=== PATIENT | female | born 1945 | race Caucasian/White ===

== ENCOUNTER 2018-09-11 17:54 | Emergency (ER) | payer OTHER ==
[~2018-09-11] VITALS: Ht 167.6 cm; Wt 95.3 kg
[2018-09-11 18:17] VITALS: BP 155/100
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
[2018-09-11 20:09] LABS: CREATININE ISTAT 1.2 mg/dL (0.5-1.4); HEMOGLOBIN ISTAT 13.9 g/dL (12-15); ION CA ISTAT 1.2 mmol/L (1.13-1.32); POTASSIUM ISTAT 4.1 mmol/L (3.5-5.0)
--- NOTE | 2018-09-11 20:41 | EKG ---
[facility] [address] [place] [address] Test Date: 2018-09-11 Test Time: 19:36:09 Pat Name: YARITZA MONAE Department: Room: Gender: F [employer] Administrator: : 1945 Requested By: JOSELYN BENTLEY Order Number: [id number] Reading MD: Sen Royal MD Measurements Intervals [place] Rate: 77 P: 43 FL: 188 QRS: -80 QRSD: 102 T: 39 QT: 404 QTc: 459 Interpretive Statements SINUS RHYTHM VENTRICULAR PREMATURE COMPLEX(ES) Electronically Signed On 09-12-2018 11:00:45 BUSINESS DIRECTOR by Sen Royal MD
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
== END 2018-09-11 20:55 | disposition home or self-care (01) ==
LOC: ER 17:54
DX: R07.89 Other chest pain (principal); E11.9 Type 2 diabetes mellitus without complications; Z90.89 Acquired absence of other organs; Z90.710 Acquired absence of both cervix and uterus; V53.5XXA Driver of pick-up truck or van injured in collision with car, pick-up truck or van in traffic accident, initial encounter; Y93.89 Activity, other specified; Y92.410 Unspecified street and highway as the place of occurrence of the external cause; Y99.0 Civilian activity done for income or pay
CPT/HCPCS: 36415; 71046; 80047; 84484; 85014; 85018; 93005; 99284